=== PATIENT | female | born 1980 | race African-American/Black ===

== ENCOUNTER 2016-07-21 13:45 | Emergency (ER) | payer SELFPAY ==
[2016-07-21 14:07] LABS: Bilirubin Negative (Negative); Blood, Urine Trace (Negative); Clarity Clear (Clear); Glucose, Urine (Dipstick) 500 mg/dL (Negative); Leukocyte Trace (Negative); Nitrite Negative (Negative); Protein, Urine (Dipstick) Negative (Neg-Trace); Urobilinogen 0.2 mg/dL (0.2-1.0)
[2016-07-21 14:08] LABS: Bacteria/HPF Rare-Few HPF (None Seen); Other Microscopic Description C&S SET UP; RBC/HPF 0-3 HPF (0-3); Squamous Epithelial 0-3 HPF (0-3); Yeast-All Forms 1+ HPF (None Seen)
[2016-07-21] MEDS ORDERED: Sulfameth/Trimethoprim DS 800-160mg TAB ONE ×2 (14:19→14:20)
== END 2016-07-21 14:15 | disposition home or self-care (01) ==
LOC: BURERS 13:45
DX: N39.0 Urinary tract infection, site not specified (principal); E11.9 Type 2 diabetes mellitus without complications; Z79.4 Long term (current) use of insulin
CPT/HCPCS: 81003; 81015; 87077; 87086; 99283